=== PATIENT | male | born 1980 | race African-American/Black ===

== ENCOUNTER 2020-06-20 12:51 | Emergency (ER) | payer OTHER ==
[~2020-06-20] VITALS: Ht 186.7 cm; Wt 99.8 kg
[~2020-06-20 12:51] MED LIST: NKM
[2020-06-20 12:55] VITALS: BP 159/99
--- NOTE | 2020-06-20 13:05 | NUR ---
ED Nurse Note: Patient walked in due to right 5th digit finger injury happened at work. No apparent swelling and with active ROM. Pt is AAO x4 and ambulatory.
--- NOTE | 2020-06-20 14:11 | Emergency Room Report ---
History of Present Illness General Chief Complaint: Upper Extremity Injury Source: Patient Present Illness HPI 40-year-old male presents to the emergency department complaining of 8 out of 10 severity pain and tenderness with some mild swelling to the right fifth digit x1 day. 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 Patient reports pain with making a fist. Patient reports he is right-hand dominant. He denies bruises. He denies open wounds or bleeding. Patient denies paresthesias or loss of gross motor movements. No other aggravating or relieving factors. Patient did not take any medications prior to arrival. Patient denies any significant past medical history. Allergies: Coded Allergies: No Known Allergies (Unverified , 03/01/14) COVID-19 Screening Contact w/high risk pt: No Experienced COVID-19 symptoms?: No COVID-19 Testing performed BARMAN: No Patient History Past Medical History: see triage record Past Surgical History: none Pertinent Family History: none Immunizations: UTD Reviewed Nursing Documentation: PMH: Agreed; PSxH: Agreed Nursing Documentation-PMH Past Medical History: No History, Except For Hx Hypertension: Yes Review of Systems All Other Systems: negative except mentioned in HPI Physical Exam Vital Signs Date Time Temp Pulse Resp B/P (MAP) Pulse Ox O2 Delivery O2 Flow Rate FiO2 06/20/20 12:55 98.1 79 18 159/99 (119) 99 Room Air Sp02 EP Interpretation: reviewed, normal General Appearance: no apparent distress, alert, GCS 15, non-toxic Head: normocephalic, atraumatic Eyes: bilateral eye normal inspection, bilateral eye PERRL ENT: hearing grossly normal, normal voice Neck: full range of motion Respiratory: lungs clear, normal breath sounds, speaking full sentences Cardiovascular #1: regular rate, rhythm, normal capillary refill Cardiovascular #2: 2+ radial (R) Musculoskeletal: back normal, normal range of motion, gait/station normal, tender - Tenderness to palpation to the DIP joint of the right fifth digit. Mild swelling noted, no anatomical deformity. Full range of motion with pain upon making a fist. Able to passively extend and flex the right fifth digit. Neurologic: alert, motor strength/tone normal, oriented x3, sensory intact, responsive, speech normal Psychiatric: judgement/insight normal Skin: no rash, normal color Medical Decision Making PA Attestation Dr. Rivas Is my supervising Physician whom patient management has been discussed with. Diagnostic Impression: Primary Impression: Sprain of finger, right Qualified Codes: S63.636A - Sprain of interphalangeal joint of right little finger, initial encounter ER Course 40-year-old male presents to the emergency department complaining of 8 out of 10 severity pain and tenderness with some mild swelling to the right fifth digit x1 day. 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 Patient reports pain with making a fist. Patient reports he is right-hand dominant. He denies bruises. He denies open wounds or bleeding. Patient denies paresthesias or loss of gross motor movements. No other aggravating or relieving factors. Patient did not take any medications prior to arrival. Patient denies any significant past medical history. Ddx considered but are not limited to Fracture, dislocation, contusion, Sprain/Strain/Spasm, Vital signs: are WNL, pt. is afebrile H&PE are most consistent with musculoskeletal injury will perform imaging to r/o fractures/dislocations. ORDERS: - X-ray Right Fingers 3 views - negative for fx, Dislocation, or significant soft tissue injury, per preliminary read in ED, and signed by DINO Fraser, my supervising physician has reviewed, and agrees with my interpretation. ED INTERVENTIONS: - Pt. Declines pain medication at this time. - Finger Splint applied to the Right 5th Digit by technical planner. Pt. remains neurovascularly intact. -I do not identify an emergent condition at this time. With current presentation, pt. is stable for close outpatient follow up and conservative treatment. D/w pt. to return promptly to ED with worsening or new symptoms.- Pt. verbalizes' understanding and agreement with proposed treatment plan.proposed treatment plan. DISCHARGE: At this time pt. is stable for d/c to home. Will provide printed patient care instructions, and any necessary prescriptions. Care plan and follow up instructions have been discussed with the patient prior to discharge. Other X-Ray Diagnostic Results Other X-Ray Diagnostic Results : X-Ray ordered: Right Fingers # of Views/Limited Vs Complete: 3 View Indication: Pain EP Interpretation: Yes DINO Xray: Interpretation reviewed, by supervising MD, and agrees with findings. Interpretation: no soft tissue swelling Impression: No acute disease Electronically Signed by: Pamela Fraser PA-C Last Vital Signs Date Time Temp Pulse Resp B/P (MAP) Pulse Ox O2 Delivery O2 Flow Rate FiO2 06/20/20 12:55 98.1 79 18 159/99 99 Room Air Status: improved Disposition: HOME, SELF-CARE Condition: Stable Scripts Ibuprofen* (MOTRIN*) 600 Mg Tablet 600 MG ORAL THREE TIMES A DAY, #20 TAB Prov: Pamela Fraser 06/20/20 Referrals: NOT CHOSEN IPA/MD,REFERRING (PCP) Departure Forms: Return to Work Return to Work Date: Jun 22, 2020 Other Restrictions: Limited use of right hand. May return Sooner if Symptoms have resolved. Return to Full Activity: Jun 26, 2020 Work Restrictions: No Heavy Lifting Patient Instructions: Finger Sprain, [id number] Additional Instructions: Take medications as directed. Follow up with a Primary Care Provider in 3-5 days, even if your symptoms have resolved. Your employer may want you to follow-up with a Worker's Compensation primary care provider, please speak to your Worker's Comp. tax adjuster for referral to their primary care provider. Return sooner to ED if new symptoms occur, or current symptoms become worse. - Please note that this Emergency Department Report was dictated using [employer] craft maintenance technician technology software, occasionally this can lead to erroneous entry secondary to interpretation by the dictation equipment. Pamela Fraser Jun 20, 2020 14:11
[2020-06-20] MEDS ORDERED: IBUPROFEN600 M1 ORAL (14:34)
[2020-06-20 14:40] VITALS: BP 145/90
--- NOTE | 2020-06-20 14:40 | NUR ---
ER DISCHARGE NOTE: Patient is cleared to be discharged per ERMD, pt is aox4, on room air, with stable vital signs. pt was given dc and prescription instructions, pt was able to verbalize understanding, pt id band removed. pt is able to ambulate with steady gait. pt took all belongings.
--- NOTE | 2020-06-22 06:18 | Diagnostic Imaging Report ---
EXAM: XR Right Fingers, 2 or More Views CLINICAL HISTORY: PAIN TECHNIQUE: Frontal, lateral and oblique views of the fingers of the right hand. COMPARISON: None FINDINGS: Bones/joints: No displaced fracture or dislocation identified. Joint space is maintained. No bony lesion. Soft tissues: Normal. IMPRESSION: No displaced fracture or dislocation identified.
== END 2020-06-20 14:40 | disposition home or self-care (01) ==
LOC: EMR 13:32
DX: S63.636A Sprain of interphalangeal joint of right little finger, initial encounter (principal); X58.XXXA Exposure to other specified factors, initial encounter; Y92.9 Unspecified place or not applicable; Y99.0 Civilian activity done for income or pay; I10 Essential (primary) hypertension
CPT/HCPCS: 29130; 99283